=== PATIENT | male | born 1950 | race African-American/Black ===

== ENCOUNTER 2025-04-08 15:49 | Emergency (ER) | payer OTHER ==
[~2025-04-08] VITALS: Ht 182.9 cm; Wt 82.0 kg
[2025-04-08 15:54] VITALS: O2SAT 99
[2025-04-08] MEDS: LIDOCAINE HCL/EPINEPHRINE 1%-EPI 1:100,000 20ML VIAL INFIL ONE (16:39)
[2025-04-08] MEDS: TETANUS, DIPHTHERIA, PERTUSSIS VAC/PF 0.5ML (>10YR OLD) IM ONE (16:40)
[2025-04-08 18:37] VITALS: BP 180/84; PULSE 82; RESP 18; TEMP 36.9; O2SAT 99
== END 2025-04-08 18:39 | disposition home or self-care (01) ==
LOC: ER 15:49
DX: S01.01XA Laceration without foreign body of scalp, initial encounter (principal); E11.9 Type 2 diabetes mellitus without complications; I10 Essential (primary) hypertension; R42 Dizziness and giddiness; W19.XXXA Unspecified fall, initial encounter; Y92.039 Unspecified place in apartment as the place of occurrence of the external cause; Y93.01 Activity, walking, marching and hiking; Y99.8 Other external cause status
CPT/HCPCS: 99285; 70450; 72125; 90715; 12002; 90471; J2004